=== PATIENT | female | born 1990 | race African-American/Black ===

== ENCOUNTER 2021-01-25 11:32 | Emergency (ER) | payer OTHER, MEDICAID ==
[~2021-01-25] VITALS: Ht 160 cm; Wt 91.6 kg
[2021-01-25 12:21] VITALS: BP 152/77
== END 2021-01-25 12:47 | disposition home or self-care (01) ==
LOC: ER 11:32
DX: B35.4 Tinea corporis (principal); Z88.2 Allergy status to sulfonamides